=== PATIENT | male | born 2000 | race African-American/Black ===

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

== ENCOUNTER 2025-06-19 11:22 | Emergency (ER) | payer MEDICAID, OTHER ==
[~2025-06-19] VITALS: Ht 170.2 cm; Wt 66.9 kg
[~2025-06-19 11:22] MED LIST: ANTIDEPRESSANT PO; LISI-892 PO
[2025-06-19 11:28] VITALS: BP 140/94; PULSE 69; RESP 18; TEMP 98.8; O2SAT 99
[2025-06-19] MEDS: ACETAMINOPHEN 500 MG TABLET PO ONE (12:15)
[2025-06-19] MEDS: IBUPROFEN 600 MG TABLET PO ONE (12:15)
== END 2025-06-19 12:37 | disposition left against medical advice (07) ==
LOC: EMS 11:24
DX: M54.50 Low back pain, unspecified (principal); F41.9 Anxiety disorder, unspecified; F32.A Depression, unspecified; Z87.891 Personal history of nicotine dependence; Z79.899 Other long term (current) drug therapy
CPT/HCPCS: 99284; Z7502; Z7610